=== PATIENT | male | born 1985 | race Two or more races ===

== ENCOUNTER 2021-05-05 00:09 | Emergency (ER) | payer OTHER ==
[~2021-05-05] VITALS: Ht 190.5 cm; Wt 157.9 kg
[2021-05-05] MEDS ORDERED: CIPRO500 MG PO (01:44)
== END 2021-05-05 01:51 ==
LOC: ER 00:09
DX: S71.112A Laceration without foreign body, left thigh, initial encounter (principal); X58.XXXA Exposure to other specified factors, initial encounter; Y92.59 Other trade areas as the place of occurrence of the external cause